=== PATIENT | male | born 1960 | race Caucasian/White ===

== ENCOUNTER 2017-08-11 14:03 | Inpatient (IN) | payer OTHER ==
[~2017-08-11] VITALS: Ht 172.7 cm; Wt 52.3 kg
[2017-08-11 14:09] VITALS: BP 163/110
[2017-08-11] MEDS ORDERED: ASPIR 8181 MG PO (14:11)
[2017-08-11 14:58] LABS: HEMATOCRIT 50.1 % (42.0-52.0); HEMOGLOBIN 18.2 gm/dL (14.0-18.0); MCH 34.8 pg (26.0-34.0); MCHC 36.3 g/dL (28.0-37.0); MCV 95.7 fL (80.0-100.0); MPV 6.8 fl. (7.2-11.1); NUCLEATED RBCS 0 /100WBC; PLATELET COUNT* 216 thou/uL (150-400); RBC 5.23 mil/uL (4.50-6.00); RDW-CV 12.8 % (10.5-14.5); WBC 5.6 thou/uL (4.0-11.0)
[2017-08-11 15:02] LABS: ANION GAP 10 mmol/L (7-16); BUN 6 mg/dL (7-18); CHLORIDE 76 mmol/L (98-107); CO2 30 mmol/L (21-32); CREATININE 0.8 mg/dL (0.6-1.3); GLUCOSE 115 mg/dL (70-99); POTASSIUM 3.5 mmol/L (3.5-5.1)
[2017-08-11 15:03] LABS: SODIUM 116 mmol/L (136-145)
[2017-08-11 15:13] LABS: ALBUMIN 4.2 g/dL (3.4-5.0); ALKALINE PHOSPHATASE 64 U/L (46-116); NT-PRO BRAIN NAT PEPTIDE 760 pg/mL (<300); SGOT 100 U/L (15-37); SGPT 93 U/L (30-65); TOTAL BILIRUBIN 0.8 mg/dL (<0.1-1.0); TOTAL PROTEIN 8.7 g/dL (6.4-8.2); TROPONIN-I LEVEL <0.06 ng/mL (<0.06)
[2017-08-11 15:14] LABS: BE 0.7 mmol/L (-2 to +3); HCO3 22.5 mmol/L (22.0-26.0); PCO2 29.6 mmHg (35.0-45.0); PO2 62.6 mmHg (75.0-100.0); pH 7.499 (7.340-7.450)
[2017-08-11 15:29] LABS: ABSOLUTE EOSINOPHILS 0.1 thou/uL (0.0-0.7); ABSOLUTE LYMPHOCYTES 0.8 thou/uL (0.8-5.3); ABSOLUTE MONOCYTES 0.5 thou/uL (0.0-1.2); ABSOLUTE NEUTROPHILS 4.2 thou/uL (1.6-8.1)
[2017-08-11 15:30] LABS: PLATELET ESTIMATE ADEQUATE
[2017-08-11 16:59] VITALS: BP 143/82
[2017-08-11 18:04] VITALS: BP 170/98
[2017-08-11 18:48] LABS: POTASSIUM 3.4 mmol/L (3.5-5.1)
[2017-08-11 20:00] VITALS: BP 132/83
[2017-08-11 22:29] LABS: POTASSIUM 3.6 mmol/L (3.5-5.1)
[2017-08-12] VITALS: BP 114/74
[2017-08-12 02:20] LABS: HEMATOCRIT 40.1 % (42.0-52.0); MCH 34.2 pg (26.0-34.0); MCHC 34.8 g/dL (28.0-37.0); MCV 98.2 fL (80.0-100.0); MPV 6.7 fl. (7.2-11.1); RBC 4.08 mil/uL (4.50-6.00); RDW-CV 12.4 % (10.5-14.5); WBC 3.5 thou/uL (4.0-11.0)
[2017-08-12 02:32] LABS: CALCIUM 8.2 mg/dL (8.5-10.1); CREATININE 0.7 mg/dL (0.6-1.3); POTASSIUM 3.6 mmol/L (3.5-5.1)
[2017-08-12 04:00] VITALS: BP 125/81
[2017-08-12 08:00] VITALS: BP 136/74
[2017-08-12 16:00] VITALS: BP 138/79
[2017-08-12 23:54] VITALS: BP 135/85
[2017-08-13 04:00] VITALS: BP 139/86
[2017-08-13 04:20] LABS: HEMATOCRIT 36.3 % (42.0-52.0); HEMOGLOBIN 12.7 gm/dL (14.0-18.0); MCH 34.9 pg (26.0-34.0); MCV 99.6 fL (80.0-100.0); MPV 6.5 fl. (7.2-11.1); RBC 3.65 mil/uL (4.50-6.00); RDW-CV 12.9 % (10.5-14.5); WBC 9.7 thou/uL (4.0-11.0)
[2017-08-13 04:51] LABS: CALCIUM 7.8 mg/dL (8.5-10.1); CREATININE 0.6 mg/dL (0.6-1.3); POTASSIUM 3.1 mmol/L (3.5-5.1)
[2017-08-13 08:00] VITALS: BP 143/94
[2017-08-13 12:14] VITALS: BP 169/94
[2017-08-13 15:59] VITALS: BP 141/88
[2017-08-14 00:07] VITALS: BP 147/89
[2017-08-14 07:45] VITALS: BP 156/95
[2017-08-14] MEDS ORDERED: PREDNISONE 10 M10 MG PO (09:25)
[2017-08-14] MEDS ORDERED: AZITHROMYCIN 2250 MG PO (09:25)
[2017-08-14] MEDS ORDERED: IBUPROFEN 200200 M1 PO (10:13)
[2017-08-14 10:18] VITALS: BP 156/95
[2017-08-14 11:47] VITALS: BP 155/93
--- NOTE | 2017-08-15 17:31 | EKG ---
[place] [address] ELECTROCARDIOGRAM REPORT Name: TEJAL CALVERT Room: [address] [place] M.R.#: [id number] Admission: 08/11/17 Attend Phys: Isadora Elam MD Discharge: 08/14/17 Date of : 62 Report #: [id number] THIS REPORT FOR: //name// [facility] ED Test Date: 2017-08-11 Test Time: 14:17:17 Pat Name: TEJAL CALVERT Department: Room: 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
== END 2017-08-14 13:30 | disposition home or self-care (01) | DRG 189 ==
LOC: M.ERS 14:03 → M.TBA-ER 15:42 → M.3W 15:42
PROVIDERS: Physician Assistant; ADMIT Internal Medicine
DX: J96.01 Acute respiratory failure with hypoxia (principal); E87.1 Hypo-osmolality and hyponatremia; J44.1 Chronic obstructive pulmonary disease with (acute) exacerbation; F17.210 Nicotine dependence, cigarettes, uncomplicated; E86.0 Dehydration; Z88.8 Allergy status to other drugs, medicaments and biological substances; Z99.81 Dependence on supplemental oxygen; Z23 Encounter for immunization